=== PATIENT | male | born 1965 | race Caucasian/White ===

== ENCOUNTER → 2016-09-30 | Outpatient (CLI) | payer BC ==
[~2016-09-30] MED LIST: LRT5 PO
--- NOTE | 2016-09-30 10:51 | DIAGNOSTIC IMAGING REPORT ---
Limited abdominal ultrasound ABDOMEN FOR HERNIA CLINICAL HISTORY: K40.90 Inguinal hernia, [id number] hernia. Pain. TECHNIQUE: Real-time ultrasound COMPARISON STUDY: None FINDINGS: Negative study left inguinal region. No evidence for hernia IMPRESSION: No evidence for hernia Electronically signed by: John Collins M.D. 09/30/2016 10:49 AM Dictated Date/Time: 09/30/2016 10:48 AM
== END | disposition home or self-care (01) ==
LOC: C.ULTR 10:17
PROVIDERS: ATTEND Internal Medicine
DX: K40.90 Unilateral inguinal hernia, without obstruction or gangrene, not specified as recurrent (principal)

== ENCOUNTER → 2016-10-28 | Outpatient (CLI) | payer BC ==
[2016-10-28 09:52] LABS: ESTIMATED AVERAGE GLUCOSE 128 mg/dl; HA1C FLAG Normal (Normal)
[2016-10-28 09:57] LABS: CHOLESTEROL/HDL RATIO 3.1; PROSTATE SPECIFIC ANTIGEN 1.92 ng/ml (0.000-4.000); THYROID STIMULATING HORMONE 1.45 uIu/ml (0.300-4.500)
--- NOTE | 2016-10-28 13:53 | DIAGNOSTIC IMAGING REPORT ---
NUCLEAR GASTRIC EMPTYING STUDY CLINICAL HISTORY: Emesis. COMPARISON STUDY: Abdominal ultrasound dated 01/02/2016. TECHNIQUE: Following the oral administration of 1.1 mCi of technetium 99m sulfur colloid in egg sandwich and 8 ounces of water, static abdominal images are obtained anteriorly and posteriorly at 0 minutes, 1 hour, 2 hour, and 4 hour time intervals. Gastric emptying was calculated utilizing the geometric mean method. FINDINGS: There is approximately 60% activity remaining at the 1 hour time interval, 30% remaining at the 2 hour time interval (normal is less than 60%), and 9% activity remaining at the 4 hour time interval (normal is less than 10%). IMPRESSION: Findings are consistent with normal gastric emptying for solids. Electronically signed by: Gianfranco Fernandez M.D. 10/28/2016 1:52 PM Dictated Date/Time: 10/28/2016 1:51 PM
== END | disposition home or self-care (01) ==
LOC: C.NUCL 08:26
PROVIDERS: ATTEND Internal Medicine
DX: R11.10 Vomiting, unspecified (principal); R73.01 Impaired fasting glucose; Z12.5 Encounter for screening for malignant neoplasm of prostate

== ENCOUNTER → 2017-05-24 | Day surgery (SDC) | payer BC ==
[2017-05-14 08:06] VITALS: Ht 175.3 cm; Wt 68.2 kg
[~2017-05-24] VITALS: Ht 175.3 cm; Wt 68.2 kg
[~2017-05-24] MED LIST changes: +ATROPINE SULFATE 0.1 MG/ML 5ML SYR IV PRN; +EpHEDrine SULFATE INJ 50 MG/ML AMP IV PRN; +LIDOCAINE HCL 2% 2 ML VIAL (20MG/ML) ONE; -LRT5 PO; +MIDAZOLAM HCL 1 MG/ML 2ML VIAL ONE; +ONDANSETRON INJ 2 MG/ML 2 ML VIAL ONE; +PROPOFOL IV EMULSION 10 MG/ML 20 ML VIAL IV ONE; +SODIUM CHLORIDE 0.9% 500ML 500 ML IV ONE
--- NOTE | 2017-05-24 09:34 | Endo History and Physical ---
History & Physical Date of Service: May 24, 2017. Chief Complaint: Screening for colon cancer Referring Physician: Dr. Angel Sommer History of Present Illness 52 yo CM who presents for screening colonoscopy. Past Surgical History Hx Cardiac Surgery: No Hx Internal Defibrillator: No Hx Pacemaker: No Hx Abdominal Surgery: No Hx of Implantable Prosthesis: No Hx Post-Op Nausea and Vomiting: No Hx Cancer Surgery: No Hx Thoracic Surgery: No Hx Orthopedic: No Hx Urinary Tract Surgery: No Family History Polyp Social History Smoking Status: Never Smoker Hx Substance Use: No Hx Alcohol Use: No Allergies Coded Allergies: No Known Allergies (Verified , 05/14/17) Current Medications Reported Home Medications Medications Dose Route/Sig Max Daily Dose Days Date Category No Active Prescriptions or Reported Medications Rx Vital Signs Weight (Kilograms): 68.18 Height (Feet): 5 Height (Inches): 9 Date Time Temp Pulse Resp B/P (MAP) Pulse Ox O2 Delivery O2 Flow Rate FiO2 05/24/17 08:59 36.8 57 16 116/75 (89) 98 Room Air Physical Exam General Appearance: WD/WN, no apparent distress Respiratory/Chest: Auscultation: breath sounds normal Cardiovascular: Heart Auscultation: RRR Abdomen: Bowel Sounds: normal Inspection & Palpation: soft, non-distended, no tenderness, guarding & rebound Assessment and Plan Assessment: 52 yo CM who presents for screening colonoscopy. Plan: Proceed with colonoscopy.
--- NOTE | 2017-05-24 10:07 | Discharge Instructions ---
Endoscopy Patient Instructions Date / Procedure(s) Performed May 24, 2017. Colonoscopy Allergy Information Coded Allergies: No Known Allergies (Verified , 05/14/17) Discharge Date / Findings May 24, 2017. Internal hemorrhoids Medication Instructions OK to resume all medications today as prescribed Reported Home Medications Medications Dose Route/Sig Max Daily Dose Days Date Category No Active Prescriptions or Reported Medications Rx Provider Instructions Activity Restrictions - No exercising or heavy lifting for 24 hours. - Do not drink alcohol the day of the procedure. - Do not drive a car or operate machinery until the day after the procedure. - Do not make any important decisions or sign important papers in 24 hours after the procedure. Following Day: - Return to full activity which may include returning to work/school. Diet Start your diet with liquids and light foods (jello, soup, juice, toast). Then eat your usual diet if not nauseated. Treatment For Common After Affects For mild abdominal pain, bloating, or excessive gas: - Rest - Eat lightly - Lie on right side Follow-Up Information Follow-up with Dr. Angel Sommer as scheduled Anesthesia Information What You Should Know You have had a procedure that required some medicine to reduce anxiety and discomfort. This treatment is called moderate sedation. After receiving the treatment, you may be sleepy, but you will be able to breathe on your own. The effects of the treatment may last for several hours. Follow these instructions along with Activity/Diet recommendations noted above: * Do NOT do anything where dizziness or clumsiness would be dangerous. * Rest quietly at home today, then you can be up and about tomorrow. * Have a responsible person stay with you the rest of today. * You may have had an I.V. today. If so, you may take the dressing off later today. Recommendations Call your doctor if: * Trouble breathing * Continuous vomiting for more than 24 hours * Temperature above 101 degrees * Severe abdominal pain or bloating * Pain not relieved by pain medicine ordered * There is increased drainage or redness from any incision * A large amount of rectal bleeding greater than 2-3 tablespoons. (If you had a polyp/s removed or have hemorrhoids, a small amount of blood - from the rectum is to be expected.) * You have any unanswered questions or concerns. IN THE EVENT OF A SERIOUS EMERGENCY, GO TO THE NEAREST EMERGENCY ROOM Your discharge instructions were prepared by provider Hal Lin. Patient Instructions Signature Page Abilio Vallecillo Patient (or Guardian) Signature/Date: I have read and understand the instructions given to me by my caregivers. Caregiver/RN/Doctor Signature/Date: The above-named patient and/or guardian has received patient instructions on this date. + Original Patient Signature Page (only) stays with chart. Please make copy for patient.
--- NOTE | 2017-05-24 10:09 | Anesthesiology Progress Note ---
Anesthesia Post Op Note Date & Time May 24, 2017 at 10:08 Vital Signs Pain Intensity: 0 Vital Signs Past 12 Hours Date Time Temp Pulse Resp B/P (MAP) Pulse Ox O2 Delivery O2 Flow Rate FiO2 05/24/17 08:59 36.8 57 16 116/75 (89) 98 Room Air Notes Mental Status: alert / awake / arousable, participated in evaluation Pt Amnestic to Procedure: Yes Nausea / Vomiting: adequately controlled Pain: adequately controlled Airway Patency, RR, SpO2: stable & adequate BP & HR: stable & adequate Hydration State: stable & adequate Anesthetic Complications: no major complications apparent
--- NOTE | 2017-05-24 10:14 | GI REPORT ---
Procedure Date: 05/24/2017 9:47 AM Procedure: Colonoscopy Indications: Screening for colorectal malignant neoplasm Medicines: Monitored Anesthesia Care Complications: No immediate complications. Estimated Blood Loss: Estimated blood loss: none. Procedure: Pre-Anesthesia Assessment: - Prior to the procedure, a History and Physical was performed, and patient medications and allergies were reviewed. The patient's tolerance of previous anesthesia was also reviewed. The risks and benefits of the procedure and the sedation options and risks were discussed with the patient. All questions were answered, and informed consent was obtained. Prior Anticoagulants: The patient has taken no previous anticoagulant or antiplatelet agents. ASA Grade Assessment: II - A patient with mild systemic disease. After reviewing the risks and benefits, the patient was deemed in satisfactory condition to undergo the procedure. After I obtained informed consent, the scope was passed under direct vision. Throughout the procedure, the patient's blood pressure, pulse, and oxygen saturations were monitored continuously. The On-site loaner was introduced through the anus and advanced to the terminal ileum. The colonoscopy was performed without difficulty. The patient tolerated the procedure well. The quality of the bowel preparation was good. The terminal ileum, ileocecal valve, appendiceal orifice, and rectum were photographed. Findings: The perianal and digital rectal examinations were normal. Non-bleeding internal hemorrhoids were found during retroflexion. The hemorrhoids were small. The exam was otherwise without abnormality. Impression: - Non-bleeding internal hemorrhoids. - The examination was otherwise normal. - No specimens collected. Recommendation: - Resume previous diet. - Continue present medications. - Repeat colonoscopy in 10 years for surveillance. - Return to primary care physician [Return Day]. Hal Lin DO 05/24/2017 10:14:08 AM This report has been signed electronically. Note Initiated On: 05/24/2017 9:47 AM I attest to the content of the Intraoperative Record and orders documented therein, exceptions below
[2017-05-24 10:35] VITALS: BP 105/70; PULSE 50; O2SAT 98
== END | disposition home or self-care (01) ==
LOC: C.GI 08:41
PROVIDERS: ATTEND Internal Medicine
DX: Z12.11 Encounter for screening for malignant neoplasm of colon (principal); K64.8 Other hemorrhoids; Z68.22 Body mass index [BMI] 22.0-22.9, adult; Z83.71 Family history of colonic polyps

== ENCOUNTER → 2017-11-12 | Outpatient (CLI) | payer OTHER ==
[~2017-11-12] MED LIST changes: -ATROPINE SULFATE 0.1 MG/ML 5ML SYR IV PRN; -EpHEDrine SULFATE INJ 50 MG/ML AMP IV PRN; +GADAVIST IV PRN; -LIDOCAINE HCL 2% 2 ML VIAL (20MG/ML) ONE; -MIDAZOLAM HCL 1 MG/ML 2ML VIAL ONE; -ONDANSETRON INJ 2 MG/ML 2 ML VIAL ONE; -PROPOFOL IV EMULSION 10 MG/ML 20 ML VIAL IV ONE; -SODIUM CHLORIDE 0.9% 500ML 500 ML IV ONE
--- NOTE | 2017-11-12 15:52 | DIAGNOSTIC IMAGING REPORT ---
MRI OF THE BRAIN WITHOUT AND WITH IV CONTRAST CLINICAL HISTORY: Headache. Vision changes. COMPARISON STUDY: MRI of the brain March 23, 2014. TECHNIQUE: Utilizing a 1.5 Marylou magnet and dedicated coil, multiplanar, multiecho imaging of the brain was performed pre and postcontrast administration. IV administration of 7 mL of Gadavist contrast was uneventful. FINDINGS: There are no foci of restricted diffusion. No acute intracranial hemorrhage, midline shift or mass effect is present. Brain volume is normal. Ventricular system is normal. Basilar cisterns are patent. There are no extra-axial collections. Flow-voids for the major intracranial vessels are present. There is no intracranial mass or pathologic enhancement. No parenchymal signal abnormality is present. Calvarial signal is normal. Orbits are unremarkable. Minimal mucosal thickening of the sinuses is noted. Mastoid air cells are clear. IMPRESSION: Unremarkable MRI of the brain. Electronically signed by: Micheal Dawkins M.D. 11/12/2017 3:51 PM Dictated Date/Time: 11/12/2017 3:48 PM
== END | disposition home or self-care (01) ==
LOC: C.MRI 14:25
PROVIDERS: ATTEND Psychiatry & Neurology Neurology
DX: H53.9 Unspecified visual disturbance (principal); R51 Headache